=== PATIENT | female | born 1990 | race African-American/Black ===

== ENCOUNTER 2020-10-12 12:28 | Emergency (ER) | payer OTHER ==
[~2020-10-12] VITALS: Ht 180.3 cm; Wt 118.0 kg
[2020-10-12 12:36] VITALS: BP 124/85
[2020-10-12 14:16] LABS: BASOPHILS % 1.1 % (0.0-2.0); EOSINOPHILS % 0.9 % (0.0-5.0); HEMATOCRIT. 36.9 % (36.0-48.0); HEMOGLOBIN. 11.8 g/dL (12.0-16.0); LYMPHOCYTES % 40.9 % (20.0-50.0); MEAN CORPUSCULAR HEMOGLOBIN 27.3 pg (28.0-32.0); MEAN CORPUSCULAR VOLUME 85.5 fL (81.0-99.0); MEAN PLATELET VOLUME 8.5 fl (7.4-10.4); MONOCYTES % 6.1 % (2.0-8.0); PLATELET 286 x1000/uL (130-400); RED BLOOD CELL COUNT 4.32 mill/uL (4.2-5.4); RED CELL DISTRIBUTION WIDTH 14.5 % (11.6-14.6)
[2020-10-12 14:21] LABS: CHLORIDE 109 mEq/L (98-107)
== END 2020-10-12 15:36 | disposition home or self-care (01) ==
LOC: ER 12:28
DX: R07.2 Precordial pain (principal); R53.83 Other fatigue; Z20.822 Contact with and (suspected) exposure to COVID-19; M79.18 Myalgia, other site; R03.0 Elevated blood-pressure reading, without diagnosis of hypertension
CPT/HCPCS: 36415; 71045; 80053; 85025; 93005; 99285; C9803; U0003